=== PATIENT | female | born 1955 | race Native Hawaiian/Other Pacific Islander ===

== ENCOUNTER 2017-02-26 11:03 | Outpatient (CLI) | payer BC ==
[~2017-02-26 11:03] MED LIST: ADIPEX PO; CYAN100010 IM; DEPO-TESTOS200 MG/M1 IM; ESTR1TAB13 PO; HYDR25TA60 PO; LEVO0.1T6 PO; SIMV40TA57; VAGIFEM10 MCG VA; ZOLP10TA2 PO
== END 2017-02-26 19:04 | disposition home or self-care (01) ==
LOC: MAMMO 11:03
DX: Z12.31 Encounter for screening mammogram for malignant neoplasm of breast (principal)

== ENCOUNTER 2018-03-05 10:25 | Outpatient (CLI) | payer BC | END 2018-03-05 20:15 | disposition home or self-care (01) | LOC: MAMMO 10:25 | DX: Z12.31 Encounter for screening mammogram for malignant neoplasm of breast (principal) ==

== ENCOUNTER 2019-06-11 11:08 | Outpatient (CLI) | payer BC | END 2019-06-11 21:30 | disposition home or self-care (01) | LOC: MAMMO 11:08 | DX: Z12.31 Encounter for screening mammogram for malignant neoplasm of breast (principal) ==